=== PATIENT | male | born 1980 | race African-American/Black ===

== ENCOUNTER 2016-11-22 00:49 | Emergency (ER) | payer OTHER ==
[~2016-11-22] VITALS: Ht 167.6 cm; Wt 70.0 kg
[2016-11-22] MEDS ORDERED: TRAZ100T6 PO (00:58)
[2016-11-22] MEDS ORDERED: ZOLO25TA PO (00:58)
[2016-11-22 00:59] VITALS: BP 113/70; PULSE 67; RESP 20; TEMP 98; O2SAT 98
[2016-11-22] MEDS ORDERED: VIST25CA PO (00:59)
[2016-11-22 01:45] LABS: AUTOMATED NEUTROPHIL # 4.4 TH/MM3 (1.8-7.7); BASOPHIL % 0.4 % (0.0-2.0); EOSINOPHIL # 0.2 TH/MM3 (0-0.4); EOSINOPHIL % 2.9 % (0.0-4.0); HEMATOCRIT 42.9 % (39.0-51.0); HEMO FLAGS DIFF FINAL; LYMPH % 26.9 % (9.0-44.0); LYMPHOCYTE # 1.9 TH/MM3 (1.0-4.8); MEAN CELL VOLUME 86.5 FL (80.0-100.0); MEAN CORPUSCULAR HEMOGLOBIN 28.3 PG (27.0-34.0); MEAN CORPUSCULAR HGB CONC 32.7 % (32.0-36.0); MONO % 8.4 % (0.0-8.0); NEUT % 61.4 % (16.0-70.0); PLATELET COUNT 254 TH/MM3 (150-450); RED BLOOD COUNT 4.96 MIL/MM3 (4.50-5.90); RED CELL DISTRIBUTION WIDTH 13.1 % (11.6-17.2); WHITE BLOOD COUNT 7.1 TH/MM3 (4.0-11.0)
[2016-11-22 01:49] LABS: ALT (GPT) 26 U/L (12-78); ANION GAP 8 MEQ/L (5-15); AST (GOT) 22 U/L (15-37); BICARBONATE 23.9 MEQ/L (21.0-32.0); BLOOD UREA NITROGEN 10 MG/DL (7-18); CHLORIDE 110 MEQ/L (98-107); GLOMERULAR FILTRATION RATE 94 ML/MIN (>89); POTASSIUM 3.3 MEQ/L (3.5-5.1); SODIUM (NA) 142 MEQ/L (136-145)
[2016-11-22 01:52] LABS: ALKALINE PHOSPHATASE 97 U/L (45-117); TOTAL BILIRUBIN ADULT 0.3 MG/DL (0.2-1.0)
[2016-11-22 01:54] LABS: ALCOHOL 12 MG/DL (0-5)
[2016-11-22] MEDS ORDERED: POTASSIUM CHLORIDE 20 MEQ CONTROLLED RELEASE TAB PO ONE (03:30)
--- NOTE | 2016-11-22 03:52 | PD ---
HPI Chief Complaint: Psychiatric Symptoms Time Seen by Provider: 03:48 Travel History International Travel<30 days: No Contact w/Intl Traveler<30days: No Traveled to known affect area: No History of Present Illness HPI Patient's 36-year-old male that presented to emergency Department under Eldridge act for psychiatric evaluation. Patient made statements stating that he would like to end his life with a pocketknife. Patient states that he was depressed because he's been off of his antidepressants which are Zoloft and trazodone. Patient reported that he has a lot going on in his life but would not elaborate. Forthcoming with why he felt suicidal or how the police were involved. Patient denies any physical complaints at this time. He denies any visual or auditory hallucinations. PFSH Past Medical History Depression: Yes Psychiatric: Yes (DEPRESSION ) Tetanus Vaccination: Never Vaccinated Influenza Vaccination: No Past Surgical History Surgical History: No Previous Surgery Social History Alcohol Use: Yes (OCCASIONAL ) Tobacco Use: Yes Substance Use: Yes (WEED) Allergies-Medications (Allergen,Severity, Reaction): Coded Allergies: No Known Allergies (Unverified , 11/22/16) Reported Meds & Prescriptions Reported Meds & Active Scripts Active Reported Vistaril (Hydroxyzine Pamoate) 25 Mg Cap 25 Mg PO HS Zoloft (Sertraline HCl) 25 Mg Tab 25 Mg PO DAILY Trazodone (Trazodone HCl) 100 Mg Tablet 100 Mg PO HS Review of Systems Except as stated in HPI: all other systems reviewed are Neg Psychiatric: Positive: Depression, Suicidal Ideations Physical Exam Narrative GENERAL: Well-developed, well-nourished, alert male. Resting comfortably in no acute distress. SKIN: Warm and dry. HEAD: Atraumatic. Normocephalic. EYES: Pupils equal and round. No scleral icterus. No injection or drainage. ENT: No nasal bleeding or discharge. Mucous membranes pink and moist. NECK: Trachea midline. No JVD. CARDIOVASCULAR: Regular rate and rhythm. RESPIRATORY: No accessory muscle use. Clear to auscultation. Breath sounds equal bilaterally. GASTROINTESTINAL: Abdomen soft, non-tender, nondistended. Hepatic and splenic margins not palpable. MUSCULOSKELETAL: Extremities without clubbing, cyanosis, or edema. No obvious deformities. NEUROLOGICAL: Awake and alert. No obvious cranial nerve deficits. Motor grossly within normal limits. Five out of 5 muscle strength in the arms and legs. Normal speech. PSYCHIATRIC: Appropriate mood and affect; insight and judgment normal. Data Data Last Documented VS Vital Signs Date Time Temp Pulse Resp B/P (MAP) Pulse Ox O2 Delivery O2 Flow Rate FiO2 11/22/16 00:59 98.0 67 20 113/70 (84) 98 Orders Orders Complete Blood Count With Diff (11/22/16 01:03) Comprehensive Metabolic Panel (11/22/16 01:03) Psych Screen (11/22/16 01:03) Drug Screen, Random Urine (11/22/16 01:03) Alcohol (Ethanol) (11/22/16 01:03) Potassium Chloride (Kcl) (11/22/16 03:30) Labs Laboratory Tests Test 11/22/16 01:16 11/22/16 01:34 White Blood Count 7.1 TH/MM3 Red Blood Count 4.96 MIL/MM3 Hemoglobin 14.0 GM/DL Hematocrit 42.9 % Mean Corpuscular Volume 86.5 FL Mean Corpuscular Hemoglobin 28.3 PG Mean Corpuscular Hemoglobin Concent 32.7 % Red Cell Distribution Width 13.1 % Platelet Count 254 TH/MM3 Mean Platelet Volume 7.6 FL Neutrophils (%) (Auto) 61.4 % Lymphocytes (%) (Auto) 26.9 % Monocytes (%) (Auto) 8.4 % Eosinophils (%) (Auto) 2.9 % Basophils (%) (Auto) 0.4 % Neutrophils # (Auto) 4.4 TH/MM3 Lymphocytes # (Auto) 1.9 TH/MM3 Monocytes # (Auto) 0.6 TH/MM3 Eosinophils # (Auto) 0.2 TH/MM3 Basophils # (Auto) 0.0 TH/MM3 CBC Comment DIFF FINAL Differential Comment Blood Urea Nitrogen 10 MG/DL Creatinine 0.92 MG/DL Random Glucose 105 MG/DL Total Protein 7.6 GM/DL Albumin 3.8 GM/DL Calcium Level 8.3 MG/DL Alkaline Phosphatase 97 U/L Aspartate Amino Transf (AST/SGOT) 22 U/L Alanine Aminotransferase (ALT/SGPT) 26 U/L Total Bilirubin 0.3 MG/DL Sodium Level 142 MEQ/L Potassium Level 3.3 MEQ/L Chloride Level 110 MEQ/L Carbon Dioxide Level 23.9 MEQ/L Anion Gap 8 MEQ/L Estimat Glomerular Filtration Rate 94 ML/MIN Ethyl Alcohol Level 12 MG/DL Urine Opiates Screen NEG Urine Barbiturates Screen NEG Urine Amphetamines Screen NEG Urine Benzodiazepines Screen NEG Urine Cocaine Screen POS Urine Cannabinoids Screen NEG MDM Medical Decision Making Medical Screen Exam Complete: Yes Emergency Medical Condition: Yes Interpretation(s) Vital Signs Date Time Temp Pulse Resp B/P (MAP) Pulse Ox O2 Delivery O2 Flow Rate FiO2 11/22/16 00:59 98.0 67 20 113/70 (84) 98 Differential Diagnosis Mood disorder versus substance abuse versus suicidal ideations versus depression versus other Narrative Course Patient's 36-year-old male that presented under Eldridge act due to suicidal ideations. Patient's vital signs are stable. Labs reviewed, CBC is unremarkable, potassium level 3.3, oral replacement ordered. Urine drug screen is positive for cocaine. Alcohol level was 12. Patient was seen and evaluated , he is resting comfortably in no distress. Patient is medically clear for psychiatric evaluation at this time. Diagnosis Primary Impression: Medical clearance for psychiatric admission Additional Impression: Substance abuse Condition: Stable Jennifer Cortez Nov 22, 2016 03:52
[2016-11-22 06:33] VITALS: BP 122/66; PULSE 72; RESP 18; O2SAT 99
--- NOTE | 2016-11-22 09:04 | PD ---
Physical Exam Time Seen by Provider: 09:02 DAVID Aguilar, has evaluated the patient, lifted Eldridge act and cleared the patient for discharge. Data Data Last Documented VS Vital Signs Date Time Temp Pulse Resp B/P (MAP) Pulse Ox O2 Delivery O2 Flow Rate FiO2 11/22/16 06:33 72 18 122/66 (84) 99 Room Air 11/22/16 00:59 98.0 Orders Orders Complete Blood Count With Diff (11/22/16 01:03) Comprehensive Metabolic Panel (11/22/16 01:03) Psych Screen (11/22/16 01:03) Drug Screen, Random Urine (11/22/16 01:03) Alcohol (Ethanol) (11/22/16 01:03) Potassium Chloride (Kcl) (11/22/16 03:30) Diet Regular Basic (11/22/16 Breakfast) Labs Laboratory Tests Test 11/22/16 01:16 11/22/16 01:34 White Blood Count 7.1 TH/MM3 Red Blood Count 4.96 MIL/MM3 Hemoglobin 14.0 GM/DL Hematocrit 42.9 % Mean Corpuscular Volume 86.5 FL Mean Corpuscular Hemoglobin 28.3 PG Mean Corpuscular Hemoglobin Concent 32.7 % Red Cell Distribution Width 13.1 % Platelet Count 254 TH/MM3 Mean Platelet Volume 7.6 FL Neutrophils (%) (Auto) 61.4 % Lymphocytes (%) (Auto) 26.9 % Monocytes (%) (Auto) 8.4 % Eosinophils (%) (Auto) 2.9 % Basophils (%) (Auto) 0.4 % Neutrophils # (Auto) 4.4 TH/MM3 Lymphocytes # (Auto) 1.9 TH/MM3 Monocytes # (Auto) 0.6 TH/MM3 Eosinophils # (Auto) 0.2 TH/MM3 Basophils # (Auto) 0.0 TH/MM3 CBC Comment DIFF FINAL Differential Comment Blood Urea Nitrogen 10 MG/DL Creatinine 0.92 MG/DL Random Glucose 105 MG/DL Total Protein 7.6 GM/DL Albumin 3.8 GM/DL Calcium Level 8.3 MG/DL Alkaline Phosphatase 97 U/L Aspartate Amino Transf (AST/SGOT) 22 U/L Alanine Aminotransferase (ALT/SGPT) 26 U/L Total Bilirubin 0.3 MG/DL Sodium Level 142 MEQ/L Potassium Level 3.3 MEQ/L Chloride Level 110 MEQ/L Carbon Dioxide Level 23.9 MEQ/L Anion Gap 8 MEQ/L Estimat Glomerular Filtration Rate 94 ML/MIN Ethyl Alcohol Level 12 MG/DL Urine Opiates Screen NEG Urine Barbiturates Screen NEG Urine Amphetamines Screen NEG Urine Benzodiazepines Screen NEG Urine Cocaine Screen POS Urine Cannabinoids Screen NEG MDM Supervised Visit with FLORES: No Narrative Course DAVID Kramer has evaluated the patient, lifted the Eldridge act and cleared the patient for discharge. Patient contracts safety. Denies suicidal or homicidal ideations. Patient will be provided community resource packet to [facility] for follow-up. Has friends and family for support. Patient is medically cleared for discharge. Diagnosis Primary Impression: Medical clearance for psychiatric admission Additional Impression: Substance abuse Referrals: LEANDRA (Out patient) [facility] Primary Care Physician Psychiatrist Kayleen [facility] Behavior[facility] Patient Instructions: General Instructions, Polysubstance Abuse (ED) Additional Instruction: Contract safety to your self and others Follow-up with psychiatry Follow-up with primary care provider Follow-up with Franc Alaniz Return to the emergency department immediately with worsening of symptoms Med/Other Pt SpecificInfo: No Change to Meds, No Meds Exist/No RX given Disposition: 01 DISCHARGE HOME Condition: Stable Francia Appiah Nov 22, 2016 09:04
[2016-11-22 09:07] VITALS: BP 122/66; TEMP 98
--- NOTE | 2016-11-22 09:09 | PD ---
History of Present Illness Chief Complaint: Psychiatric Symptoms Time Seen by Provider: 08:45 Travel History International Travel<30 Days: No Contact w/Intl Traveler<30days: No Known affected area: No Legal Status Legal Status: Eldridge Act Eldridge Act Signed By: Kadeem De La Torre History of Present Illness: History of Present Illness HPI Patient's 36-year-old male, [place] [facility] [place] , who is now under anther name. His name is Zbigniew Padilla. He presented to emergency Department under Eldridge act for psychiatric evaluation. Patient made statements stating that he would like to end his life with a pocketknife. Patient states that he was depressed because he's been off of his antidepressants which are Zoloft and trazodone. Patient reported that he has a lot going on in his life but would not elaborate. Forthcoming with why he felt suicidal or how the police were involved. Patient denies any physical complaints at this time. He denies any visual or auditory hallucinations. Patient has bee monitored in J pod. He has been demanding food as well as being rude and demanding to staff. This morning he is wake, and states " I'm fine" . He does not want to engage in further questioning. Patient is advised of services at [facility] for follow up psychiatric care which he can access this morning as a walk in. Patient is not psychotic, not manic. Does not verbalize suicidal or homicidal ideation, intent or plan. PFSH Past Medical History Depression: Yes Psychiatric: Yes (DEPRESSION ) Tetanus Vaccination: Never Vaccinated Influenza Vaccination: No Past Surgical History Surgical History: No Previous Surgery Psychiatric History Psychiatric History Hx Psychiatric Treatment: HX: DEPRESSION, ANTISOCIAL PERSONALITY DISORDER, AND BIPOLAR DISORDER. History of Inpatient Treatment: Yes Guns or firearms in home: No Social History Single homeless male. Hx Alcohol Use: Yes (OCCASIONAL ) Hx Tobacco Use: Yes Hx Substance Use: Yes Substance Use Type: Alcohol, Crack, Marijuana, Benzos (Valium,Xanax), Cocaine Other Substances Used: Current t oxicology is positive for cocaine . BAL is 12 Hx of Substance Use Treatment: Yes Family Psychiatric History None reported Allergies-Medications (Allergen,Severity, Reaction): Coded Allergies: No Known Allergies (Unverified , 11/22/16) Reported Meds & Prescriptions Reported Meds & Active Scripts Active Reported Vistaril (Hydroxyzine Pamoate) 25 Mg Cap 25 Mg PO HS Zoloft (Sertraline HCl) 25 Mg Tab 25 Mg PO DAILY Trazodone (Trazodone HCl) 100 Mg Tablet 100 Mg PO HS Review of Systems ROS Limitations: Uncooperative Mental Status Examination Appearance: Appropriate Consciousness: Alert Orientation: x4 Motor Activity: Normal gait Speech: Unremarkable Fund of Knowledge: Adequate Attention and Concentration: Adequate Memory: Unremarkable Mood: Angry Affect: Appropriate Thought Process & Associations: Intact Thought Content: Appropriate Hallucination Type: None Delusion Type: None Suicidal Ideation: No Suicidal Plan: No Suicidal Intention: No Homicidal Ideation: No Homicidal Plan: No Homicidal Intention: No Insight: Poor Judgment: Impulsive MDM Medical Decision Making Medical Record Reviewed: Yes Assessment/Plan 36 year old male ,[place] [facility] his name is Zbigniew Padilla not Zbigniew Jorge as in Eldridge act, from previous ed visits under a Eldridge act after he contacted the police to inform them he wanted to kill himself using a pocket knife and that thee reason he wanted to do so was because he is not taking his medicine. Minimal psychiatric symptoms now. What psychiatric symptoms he may have led to being placed under a Eldridge act I suspect were likely substance-induced or perhaps as part of an effort to malinger for retirement. There is no evidence of a mental illness as defined under the Eldridge act. He does not describe any current suicidal or homicidal ideation. He appears to be attending to his basic needs. Synthesizing all of this information and based on the available evidence, the patient does not meet Eldridge act criteria. The patient does not meet criteria for inpatient psychiatric hospitalization at this time. He would benefit from outpatient mental health and chemical dependency evaluation and treatment. Patient at this time does not present any suicdal or homicidal ideation, intent t or plan. he is not psychotic. he has been demanding food as well as not wanting to engage with staff. Ba is lifted. Clear psychiatrically for discharge. Orders Orders Complete Blood Count With Diff (11/22/16 01:03) Comprehensive Metabolic Panel (11/22/16 01:03) Psych Screen (11/22/16 01:03) Drug Screen, Random Urine (11/22/16 01:03) Alcohol (Ethanol) (11/22/16 01:03) Potassium Chloride (Kcl) (11/22/16 03:30) Diet Regular Basic (11/22/16 Breakfast) Results Vital Signs Date Time Temp Pulse Resp B/P (MAP) Pulse Ox O2 Delivery O2 Flow Rate FiO2 11/22/16 06:33 72 18 122/66 (84) 99 Room Air 11/22/16 00:59 98.0 67 20 113/70 (84) 98 Laboratory Tests Test 11/22/16 01:16 11/22/16 01:34 White Blood Count 7.1 Red Blood Count 4.96 Hemoglobin 14.0 Hematocrit 42.9 Mean Corpuscular Volume 86.5 Mean Corpuscular Hemoglobin 28.3 Mean Corpuscular Hemoglobin Concent 32.7 Red Cell Distribution Width 13.1 Platelet Count 254 Mean Platelet Volume 7.6 Neutrophils (%) (Auto) 61.4 Lymphocytes (%) (Auto) 26.9 Monocytes (%) (Auto) 8.4 Eosinophils (%) (Auto) 2.9 Basophils (%) (Auto) 0.4 Neutrophils # (Auto) 4.4 Lymphocytes # (Auto) 1.9 Monocytes # (Auto) 0.6 Eosinophils # (Auto) 0.2 Basophils # (Auto) 0.0 CBC Comment DIFF FINAL Differential Comment Blood Urea Nitrogen 10 Creatinine 0.92 Random Glucose 105 Total Protein 7.6 Albumin 3.8 Calcium Level 8.3 Alkaline Phosphatase 97 Aspartate Amino Transf (AST/SGOT) 22 Alanine Aminotransferase (ALT/SGPT) 26 Total Bilirubin 0.3 Sodium Level 142 Potassium Level 3.3 Chloride Level 110 Carbon Dioxide Level 23.9 Anion Gap 8 Estimat Glomerular Filtration Rate 94 Ethyl Alcohol Level 12 Urine Opiates Screen NEG Urine Barbiturates Screen NEG Urine Amphetamines Screen NEG Urine Benzodiazepines Screen NEG Urine Cocaine Screen POS Urine Cannabinoids Screen NEG Diagnosis Primary Impression: Substance abuse Additional Impression: Malingering Psychiatrically Cleared: Yes Med/ Other Pt Specific Info: No Meds Exist/No RX given Disposition: 01 DISCHARGE HOME Condition: Stable Problem Qualifiers Nia Farrell Nov 22, 2016 09:09
== END 2016-11-22 09:16 | disposition home or self-care (01) ==
LOC: NEPD 00:49 → NEPJ 09:16
DX: Z02.89 Encounter for other administrative examinations (principal); F19.10 Other psychoactive substance abuse, uncomplicated; Z76.5 Malingerer [conscious simulation]; Z72.0 Tobacco use; Z79.899 Other long term (current) drug therapy; Z86.59 Personal history of other mental and behavioral disorders
CPT/HCPCS: 80053; 80307; 85025; 99283